=== PATIENT | female | born 1965 | race Caucasian/White ===

== ENCOUNTER 2017-07-20 08:21 | Inpatient (IN) | payer OTHER ==
[~2017-07-20] VITALS: Ht 162.6 cm; Wt 119.9 kg
[~2017-07-20 08:21] MED LIST: ACET-1600 PO; ASPI-496 PO; BACITRACIN 50,000 UNIT ONE; BUPIVACAINE/PF 0.5% ONE; CETI10TA24 PO; CHOL500015 PO; CYCL-259 PO; EPINEPHRINE 1 MG/ML, 1ML ONE; HYDR-3307 PO; LEVO150T PO; LISI-167 PO; OXYC5CAP2 PO; PREG75CA PO; SERT100T5 PO; THROMBIN 5,000 UNIT VIAL TP ONE; TOLT4CAP PO
[2017-07-20] MEDS ORDERED: LACTATED RINGERS 1,000 ML IV SCH (08:38)
[2017-07-20] MEDS ORDERED: REMIFENTANIL 2 MG ONE ×2 (10:31→13:07)
[2017-07-20] MEDS ORDERED: PROPOFOL 0 ML ONE (10:31)
[2017-07-20] MEDS ORDERED: FENTANYL PF 100 MCG/2ML ONE ×3 (10:32→14:28)
[2017-07-20] MEDS ORDERED: MIDAZOLAM 1 MG/ML, 2ML ONE (10:41)
[2017-07-20] MEDS ORDERED: KETAMINE 10 MG/ML, 20ML ONE (10:41)
[2017-07-20] MEDS ORDERED: ROCURONIUM 10 MG/ML ONE (11:46)
[2017-07-20] MEDS ORDERED: LIDOCAINE-MPF 2% ,5ML ONE (11:46)
[2017-07-20] MEDS ORDERED: ONDANSETRON 2MG/ML, 2ML ONE (11:46)
[2017-07-20] MEDS ORDERED: DEXAMETHASONE 4 MG/ML, 5ML ONE (11:46)
[2017-07-20] MEDS ORDERED: LABETALOL 5MG/ML 40ML VIAL ONE (11:46)
[2017-07-20] MEDS ORDERED: SUCCINYLCHOLINE 20 MG/ML, 10ML ONE (11:46)
[2017-07-20] MEDS ORDERED: CEFAZOLIN 1,000 MG ONE (11:46)
[2017-07-20] MEDS ORDERED: PROPOFOL 150 ML ONE (12:11)
[2017-07-20] MEDS ORDERED: PROPOFOL 100 ML ONE (12:38)
[2017-07-20] MEDS ORDERED: hydrALAzine 20 MG/ML, 1ML IV PRN (13:00)
[2017-07-20] MEDS ORDERED: MEPERIDINE/PF 25MG/0.5ML IVPush PRN (13:00)
[2017-07-20] MEDS ORDERED: OXYcodone 5 MG/5 ML ORAL.SOL UDC PO PRN (13:00)
[2017-07-20] MEDS ORDERED: PROMETHAZINE 25 MG/ML, 1ML IV PRN (13:00)
[2017-07-20] MEDS ORDERED: ACETAMINOPHEN 325 MG TABLET PO PRN (13:00)
[2017-07-20] MEDS ORDERED: DIAZEPAM 5 MG/ML, 2ML IVPush PRN ×2 (13:00→14:30)
[2017-07-20] MEDS ORDERED: HYDROmorphone 1 MG/ML, 1ML IV PRN (13:00)
[2017-07-20] MEDS ORDERED: OXYcodone 5 MG/5 ML ORAL.SOL UDC ONE (14:28)
[2017-07-20] MEDS ORDERED: HYDROmorphone PCA 30 MG/30 ML ONE (14:28)
[2017-07-20] MEDS ORDERED: ACETAMINOPHEN 650 MG/20.3 ML UDC ONE (14:28)
[2017-07-20] MEDS ORDERED: HYDROmorphone PCA 30 MG/30 ML IV PRN (14:30)
[2017-07-20] MEDS ORDERED: MAGNESIUM HYDROXIDE 8%, 30ML UDC PO PRN (14:30)
[2017-07-20] MEDS: FENTANYL PF 100 MCG/2ML IV PRN ×3 (14:30→15:00)
[2017-07-20] MEDS ORDERED: HYDROcodone/APAP 10/325 MG TABLET PO PRN (14:30)
[2017-07-20] MEDS ORDERED: PHARMACY MAY ADJ FOR RENAL FX MC PRN (14:30)
[2017-07-20] MEDS ORDERED: DIPHENHYDRAMINE 50 MG/ML, 1ML IVPush PRN (14:30)
[2017-07-20] MEDS ORDERED: ONDANSETRON 2MG/ML, 2ML IVPush PRN (14:30)
[2017-07-20] MEDS ORDERED: BISACODYL 10 MG SUPP PR PRN (14:30)
[2017-07-20] MEDS ORDERED: PROMETHAZINE 25 MG/ML, 1ML IM PRN (14:30)
[2017-07-20] MEDS ORDERED: OXYcodone/APAP 5/325MG TABLET PO PRN (14:30)
[2017-07-20] MEDS ORDERED: hydrALAzine 20 MG/ML, 1ML ONE (14:40)
[2017-07-20] MEDS ORDERED: DIAZEPAM 5 MG/ML, 10ML VIAL IVPush PRN (15:00)
[2017-07-20] MEDS: NS + 20MEQ KCL 1,000 ML IV SCH (17:00)
[2017-07-20 19:15] VITALS: BP 142/83
[2017-07-20] MEDS: SODIUM CHLORIDE FLUSH 10ML SYR IVF SCH (20:21)
[2017-07-20] MEDS: LISINOPRIL 10 MG TABLET PO SCH (20:21)
[2017-07-20] MEDS: CEFAZOLIN PMX 1GM/50ML 50 ML IVPB SCH (20:21)
[2017-07-20] MEDS: CYCLOBENZAPRINE 10 MG TABLET PO PRN (20:23)
[2017-07-21 00:55] VITALS: BP 171/81
[2017-07-21] MEDS: NS + 20MEQ KCL 1,000 ML IV SCH ×2 (03:13→14:10)
[2017-07-21] MEDS: CEFAZOLIN PMX 1GM/50ML 50 ML IVPB SCH (03:32)
[2017-07-21 03:43] VITALS: BP 137/79
[2017-07-21] MEDS: TOLTERODINE LA 4MG CAP.ER.24H PO SCH ×2 (06:00→08:18)
[2017-07-21] MEDS: LEVOTHYROXINE 150 MCG TABLET PO SCH (06:13)
[2017-07-21 06:45] VITALS: BP 156/85
[2017-07-21] MEDS: SERTRALINE 100MG TABLET PO SCH (08:18)
[2017-07-21] MEDS: CETIRIZINE 10 MG TABLET PO SCH (08:18)
[2017-07-21] MEDS: SENNA/DOCUSATE TABLET PO SCH (08:18)
[2017-07-21] MEDS: SODIUM CHLORIDE FLUSH 10ML SYR IVF SCH ×2 (08:21→21:42)
[2017-07-21 13:00] VITALS: BP 150/74
[2017-07-21 20:14] VITALS: BP 143/80
[2017-07-21] MEDS: LISINOPRIL 10 MG TABLET PO SCH (21:42)
[2017-07-21] MEDS: CYCLOBENZAPRINE 10 MG TABLET PO PRN (21:45)
[2017-07-22] MEDS: NS + 20MEQ KCL 1,000 ML IV SCH ×3 (00:12→20:00)
[2017-07-22 01:25] VITALS: BP 168/96
[2017-07-22] MEDS: LEVOTHYROXINE 150 MCG TABLET PO SCH (04:19)
[2017-07-22] MEDS: TOLTERODINE LA 4MG CAP.ER.24H PO SCH (04:47)
[2017-07-22 05:12] LABS: HEMATOCRIT 38.7 % (34.6-47.8); HEMOGLOBIN 12.8 g/dL (11.7-16.4); WHITE BLOOD COUNT 8.1 x10^3/uL (3.4-10)
[2017-07-22 05:22] LABS: BLOOD UREA NITROGEN 11 mg/dL (7-18)
[2017-07-22 06:48] VITALS: BP 154/91
[2017-07-22] MEDS ORDERED: BUPIVACAINE/PF 0.5% ONE (07:22)
[2017-07-22] MEDS ORDERED: THROMBIN 5,000 UNIT VIAL TP ONE (07:23)
[2017-07-22] MEDS ORDERED: BACITRACIN 50,000 UNIT ONE (07:23)
[2017-07-22] MEDS ORDERED: EPINEPHRINE 1 MG/ML, 1ML ONE (07:23)
[2017-07-22] MEDS ORDERED: PROPOFOL 10 MG/ML, 20ML ONE (07:37)
[2017-07-22] MEDS ORDERED: LIDOCAINE-MPF 2% ,5ML ONE (07:37)
[2017-07-22] MEDS ORDERED: MIDAZOLAM 1 MG/ML, 2ML ONE (07:42)
[2017-07-22] MEDS ORDERED: SUFentanil 50 MCG/ML, 1ML ONE (07:42)
[2017-07-22] MEDS ORDERED: CEFAZOLIN 1,000 MG ONE ×2 (07:43)
[2017-07-22] MEDS ORDERED: PROPOFOL 50 ML ONE ×2 (08:06→10:05)
[2017-07-22] MEDS ORDERED: ROCURONIUM 10MG/ML,5ML ONE (08:35)
[2017-07-22] MEDS ORDERED: DEXAMETHASONE 4 MG/ML, 5ML ONE (08:35)
[2017-07-22] MEDS ORDERED: LABETALOL 5MG/ML 40ML VIAL ONE (08:35)
[2017-07-22] MEDS ORDERED: REMIFENTANIL 2 MG ONE (08:53)
[2017-07-22] MEDS: SODIUM CHLORIDE FLUSH 10ML SYR IVF SCH ×2 (09:00→22:34)
[2017-07-22] MEDS ORDERED: BUPIVACAINE/PF-EPI 0.5% 1:200K IM ONE (09:10)
[2017-07-22] MEDS ORDERED: KETAMINE 10 MG/ML, 20ML ONE (09:32)
[2017-07-22] MEDS ORDERED: VANCOMYCIN 1,000 MG ONE (10:02)
[2017-07-22] MEDS ORDERED: ONDANSETRON 2MG/ML, 2ML ONE ×2 (10:05)
[2017-07-22] MEDS ORDERED: PROMETHAZINE 25 MG/ML, 1ML IV PRN (10:30)
[2017-07-22] MEDS ORDERED: MEPERIDINE/PF 25MG/0.5ML IVPush PRN (10:30)
[2017-07-22] MEDS ORDERED: FENTANYL PF 100 MCG/2ML IV PRN (10:30)
[2017-07-22] MEDS ORDERED: HYDROmorphone 1 MG/ML, 1ML IV PRN (10:30)
[2017-07-22] MEDS ORDERED: hydrALAzine 20 MG/ML, 1ML IV PRN (10:30)
[2017-07-22] MEDS ORDERED: OXYcodone 5 MG/5 ML ORAL.SOL UDC PO PRN (10:30)
[2017-07-22] MEDS ORDERED: ONDANSETRON 2MG/ML, 2ML IVPush PRN (10:30)
[2017-07-22] MEDS ORDERED: LABETALOL 5MG/ML, 20ML IV PRN (10:30)
[2017-07-22] MEDS ORDERED: LORazepam 2 MG/ML, 1ML IVPush PRN (10:30)
[2017-07-22] MEDS ORDERED: ACETAMINOPHEN 325 MG TABLET PO PRN (10:30)
[2017-07-22] MEDS: morphine SULFATE 10 MG/ML, 1ML IVPush PRN ×2 (11:00→11:15)
[2017-07-22] MEDS ORDERED: MORPHINE SULFATE 4 MG/ML, 1ML ONE (11:01)
[2017-07-22] MEDS: CETIRIZINE 10 MG TABLET PO SCH (11:47)
[2017-07-22] MEDS: SERTRALINE 100MG TABLET PO SCH (11:47)
[2017-07-22] MEDS: SENNA/DOCUSATE TABLET PO SCH (11:47)
[2017-07-22] MEDS ORDERED: HYDROmorphone PCA 30 MG/30 ML IV PRN (12:00)
[2017-07-22] MEDS: CHOLECALCIFEROL 1,000 UNIT TABLET PO SCH (13:11)
[2017-07-22 14:45] VITALS: BP 165/72
[2017-07-22] MEDS: CEFAZOLIN PMX 1GM/50ML 50 ML IVPB SCH (17:58)
[2017-07-22 19:15] VITALS: BP 147/76
[2017-07-22] MEDS: LISINOPRIL 10 MG TABLET PO SCH (22:34)
[2017-07-23 00:12] VITALS: BP 113/69
[2017-07-23] MEDS: CEFAZOLIN PMX 1GM/50ML 50 ML IVPB SCH (00:22)
[2017-07-23 04:00] VITALS: BP 143/85
[2017-07-23] MEDS: LEVOTHYROXINE 150 MCG TABLET PO SCH (04:25)
[2017-07-23] MEDS: CYCLOBENZAPRINE 10 MG TABLET PO PRN ×2 (04:25→19:17)
[2017-07-23] MEDS: NS + 20MEQ KCL 1,000 ML IV SCH ×2 (04:26→15:35)
[2017-07-23] MEDS ORDERED: LEVO75TA5 PO (04:31)
[2017-07-23] MEDS: LEVOTHYROXINE 75 MCG TABLET PO SCH ×3 (06:34→08:08)
[2017-07-23 06:53] VITALS: BP 136/100
[2017-07-23] MEDS: TOLTERODINE LA 4MG CAP.ER.24H PO SCH (07:56)
[2017-07-23] MEDS: CETIRIZINE 10 MG TABLET PO SCH (07:57)
[2017-07-23] MEDS: SENNA/DOCUSATE TABLET PO SCH (07:58)
[2017-07-23] MEDS: CHOLECALCIFEROL 1,000 UNIT TABLET PO SCH (07:59)
[2017-07-23] MEDS: SERTRALINE 100MG TABLET PO SCH (08:01)
[2017-07-23] MEDS: SODIUM CHLORIDE FLUSH 10ML SYR IVF SCH ×2 (08:08→19:20)
[2017-07-23] MEDS: HYDROmorphone 2MG TABLET PO SCH ×4 (09:38→23:25)
[2017-07-23 12:26] VITALS: BP 120/81
[2017-07-23] MEDS: POLYETHYLENE GLYCOL 17 GM PACKET PO PRN (17:31)
[2017-07-23 19:43] VITALS: BP 114/68
[2017-07-23] MEDS: DIAZEPAM 5 MG TABLET PO PRN (20:06)
[2017-07-23] MEDS: LISINOPRIL 10 MG TABLET PO SCH (23:25)
[2017-07-24] MEDS: NS + 20MEQ KCL 1,000 ML IV SCH (02:00)
[2017-07-24] MEDS: DIAZEPAM 5 MG TABLET PO PRN (02:30)
[2017-07-24 03:12] VITALS: BP 121/79
[2017-07-24] MEDS: HYDROmorphone 2MG TABLET PO SCH ×2 (04:28→08:26)
[2017-07-24 06:56] VITALS: BP 149/78
[2017-07-24] MEDS: LEVOTHYROXINE 150 MCG TABLET PO SCH (07:23)
[2017-07-24] MEDS: SODIUM CHLORIDE FLUSH 10ML SYR IVF SCH (07:51)
[2017-07-24] MEDS: CETIRIZINE 10 MG TABLET PO SCH (07:51)
[2017-07-24] MEDS: CHOLECALCIFEROL 1,000 UNIT TABLET PO SCH (07:51)
[2017-07-24] MEDS: SERTRALINE 100MG TABLET PO SCH (07:51)
[2017-07-24] MEDS: SENNA/DOCUSATE TABLET PO SCH (07:51)
[2017-07-24] MEDS: TOLTERODINE LA 4MG CAP.ER.24H PO SCH (07:51)
[2017-07-24] MEDS: POLYETHYLENE GLYCOL 17 GM PACKET PO PRN (07:54)
[2017-07-24] MEDS ORDERED: DIAZ5TAB4 PO (08:32)
[2017-07-24] MEDS ORDERED: CYCL-259 PO (08:32)
[2017-07-24] MEDS ORDERED: HYDR2TAB40 PO (08:32)
[2017-07-24] MEDS: CYCLOBENZAPRINE 10 MG TABLET PO PRN (09:52)
[2017-07-24 10:00] VITALS: BP 107/69
== END 2017-07-24 10:40 | disposition home or self-care (01) | DRG 472 ==
LOC: OUT 08:21 → ORIP 14:11 → 4NOR 15:39 → DCLOUNGE 07-24 10:31
PROVIDERS: ADMIT Neurological Surgery; ATTEND Neurological Surgery
PROC: 0RB30ZZ Excision of Cervical Vertebral Disc, Open Approach (ICD-10-PCS; 2017-07-20)
PROC: 0RG10A0 Fusion of Cervical Vertebral Joint with Interbody Fusion Device, Anterior Approach, Anterior Column, Open Approach (ICD-10-PCS; principal; 2017-07-20 11:30)
PROC: 01NB0ZZ Release Lumbar Nerve, Open Approach (ICD-10-PCS; 2017-07-22)
DX: M47.22 Other spondylosis with radiculopathy, cervical region (principal); Z68.42 Body mass index [BMI] 45.0-49.9, adult; E66.01 Morbid (severe) obesity due to excess calories; M47.12 Other spondylosis with myelopathy, cervical region; Z96.659 Presence of unspecified artificial knee joint; M48.062 Spinal stenosis, lumbar region with neurogenic claudication; I10 Essential (primary) hypertension; F41.9 Anxiety disorder, unspecified; F32.9 Major depressive disorder, single episode, unspecified; Z90.49 Acquired absence of other specified parts of digestive tract; Z90.710 Acquired absence of both cervix and uterus; Z88.8 Allergy status to other drugs, medicaments and biological substances; Z82.49 Family history of ischemic heart disease and other diseases of the circulatory system; Z82.61 Family history of arthritis
CPT/HCPCS: 36415; 72040; 72100; 80048; 85027; 85610; 85730; 95938; 95941; C1713; C1776; J0171; J0690; J1100; J1170; J2250; J2405; J2704; J3010; J3360; J3370; J3480; J3490; J0330; J0360; J2270; J7120